=== PATIENT | male | born 1965 | race Caucasian/White ===

== ENCOUNTER 2018-04-06 11:27 | Observation (INO) ==
[2018-04-06] MEDS ORDERED: Ipratropium/Albuterol Neb 3 ML IH ONE (12:12)
[2018-04-06] MEDS ORDERED: methylPREDNISolone 125 MG/2 ML VIAL IVP ONE (12:12)
[2018-04-06 12:51] LABS: Basophils % 0.4 %; Eosinophils # 0.1 K/mcL (0.0-0.6); Eosinophils % 2.5 %; Hematocrit 44.1 % (37.5-50.1); Immature Granulocytes % 0.4 % (0-4); Lymphocytes # 1.5 K/mcL (0.6-4.6); Lymphocytes % 26.2 %; Mean Corpuscular Hemoglobin 28.2 pg (28.0-33.3); Mean Corpuscular Volume 83.1 fL (83.0-100.0); Monocytes # 0.3 K/mcL (0.0-1.3); Monocytes % 5.5 %; Neutrophils # 3.7 K/mcL (1.6-8.9); Platelet Count 160 K/mcL (140-400); Red Blood Count 5.31 M/mcL (4.19-5.50); Red Cell Distribution Width 12.1 % (11.5-14.5)
--- NOTE | 2018-04-06 13:11 | Emergency Department Note ---
Disposition Clinical Impression: Hyperglycemia, Lactic acidosis Disposition: Admitted As Inpatient SOB HPI - General Chief Complaint: ED Shortness of Breath/Dyspnea Stated Complaint: Left AMA Yesterday,needs test admit Time Seen by Provider: 04/06/18 11:42 Source: patient Limitations: no limitations Nursing Notes Reviewed: Yes Vital Signs Reviewed: Yes - History of Present Illness 53 year old male praneeth ot the ED with complaints of shortness of breath and was evlauted here yesterday and offered admission for CP r/o ACS and he left AMA. PAtient states that he has not experinced chest pain but is expereincing exertional dyspnea and productive cough and denies smoking or history of blood clots in his lung. Patient states that he has a family history of ACS and has l ost his father to an [place]. Patint denies taking any medicatiosnand states that his exertional dspnea is getting worse. Patient denies fever and is wanted to be checked out again and re-evlauted for admission - Related Data Home Medications Medication Instructions Recorded Confirmed Insulin Glargine,Hum.rec.anlog 20 unit SQ QPM 04/06/18 04/06/18 [Lantus Solostar] RX: Lisinopril [Zestril] 10 mg PO DAILY 04/06/18 04/06/18 Allergies Allergy/AdvReac Type Severity Reaction Status Date / Time prednisone AdvReac See Verified 04/05/17 14:45 Comments Constitutional: Denies: fever, chills, weakness, weight change Eyes: Denies: eye pain, eye discharge, vision change ENT ED: Denies: ear pain, throat pain, dental pain, hearing loss, epistaxis, c ongestion, dysphagia Cardiovascular: Reports: dyspnea on exertion. Denies: chest pain, palpitations, edema, syncope Respiratory: Reports: cough, wheezes. Denies: dyspnea, hemoptysis, stridor Gastrointestinal: Denies: abdominal pain, nausea, vomiting, diarrhea, constipation, hematemesis, melena, hematochezia Genitourinary: Denies: urgency, dysuria, frequency, hematuria Musculoskeletal: Denies: back pain, neck pain, arthralgia, myalgia Integumentary: Denies: rash, abrasion, lesions Neurological: Denies: headache, weakness, numbness, paresthesias, confusion, abnormal gait, vertigo Psychiatric: Denies: anxiety, depression, suicidal thoughts, homicidal thoughts, auditory hallucinations, visual hallucinations Endocrine: Denies: fatigue Hematological/Lymphatic: Denies: easy bleeding, easy bruising Allergic/Immunologic: Denies: facial swelling, urticaria Past Medical History - Past Medical History Medical history: Reports: asthma, diabetes, hyperlipidemia, hypertension Surgical history: Reports: non-contributory Psychiatric history: Reports: anxiety, depression - Social History Smoking Status: Never smoker Smokeless Tobacco Status: No Alcohol use: Reports: none Drug use: Reports: none Physical Exam - General Limitations: no limitations General appearance: alert - Head Head exam: atraumatic, normocephalic, normal inspection - Eye Eye exam: Present: normal appearance, PERRL, EOMI - Expanded Eye Exam Pupils: Bilateral: reactive - ENT ENT exam: normal exam, normal oropharynx, mucous membranes moist - Expanded ENT Exam External ear exam: Present: normal external inspection Mouth exam: Present: normal external inspection Teeth exam: Present: normal inspection Throat exam: Present: normal inspection - Neck Neck exam: Present: normal inspection, full ROM, trachea midline - Chest Chest inspection: Present: normal inspection, symmetric chest wall rise - Respiratory Respiratory exam: Present: wheezes - Cardiovascular Cardiovascular exam: Present: regular rate, normal rhythm, normal heart sounds - Abdominal Exam Abdominal exam: Present: soft, Non-Tender. Absent: tenderness, distention, guarding, rebound, rigidity - Extremities Exam Extremities exam: Present: normal inspection, full ROM. Absent: tenderness, pedal edema - Expanded Upper Extremity Exam Shoulder exam: Present: normal inspection, full ROM Arm exam: Present: normal inspection, full ROM Elbow exam: Present: normal inspection, full ROM Forearm/Wrist exam: Present: normal inspection, full ROM Hand exam: Present: normal inspection, full ROM Vascular exam: Normal: capillary refill, radial pulse - Expanded Lower Extremity Exam Hip/Pelvis exam: Present: normal inspection, full ROM Upper leg exam: Present: normal inspection, full ROM Knee exam: Present: normal inspection, full ROM Lower leg exam: Present: normal inspection, full ROM Ankle exam: Present: normal inspection, full ROM Foot/toe exam: Present: normal inspection, full ROM Neurovascular/Tendon exam: Absent: motor deficit, sensory deficit, tendon deficit - Back Exam Back exam: Present: normal inspection, full ROM. Absent: tenderness - Neurological Exam Neurological exam: Present: alert, oriented X3 - Expanded Neurological Exam Patient oriented to: Present: person, place, time Coma Scale Eye Opening: Spontaneous Coma Scale Motor Response: Obeys Commands Coma Scale Verbal Response: Oriented Coma Scale Total: 15 - Psychiatric Psychiatric exam: Present: normal affect, normal mood - Skin Skin exam: Present: warm, dry, intact, normal color Course Course Narrative: I will do a cardiopulmonary workup and then reassess for admission. ASA therapy given and breathign treatments/steroids for his wheezes - Consultations Consultation #1: discussed case with Dr. Reynaga and he has been accepted to the medicine service Time: 18:27 Vital Signs Temperature 98.2 F 04/06/18 11:38 Pulse Rate 89 04/06/18 11:38 Respiratory Rate 18 04/06/18 11:38 Blood Pressure 158/94 04/06/18 11:38 O2 Sat by Pulse Oximetry 97 04/06/18 11:38 Temperature 97.4 F L 04/06/18 15:44 Pulse Rate 92 04/06/18 15:44 Respiratory Rate 16 04/06/18 16:42 Blood Pressure 148/94 04/06/18 16:42 O2 Sat by Pulse Oximetry 96 04/06/18 15:44 Oxygen Delivery Oxygen Delivery Room Air Shortness of Breath/Dyspnea - Medical Records Medical records reviewed: Yes I reviewed the patient's medical records. - Lab Data Lab results reviewed: Yes I reviewed the patient's lab results. Result diagrams: 04/06/18 12:32 04/06/18 17:47 Lab Results 04/06/18 04/06/18 04/06/18 Range/Units 12:32 12:32 12:32 WBC 5.7 (4.3-11.1) K/mcL RBC 5.31 (4.19-5.50) M/mcL Hgb 15.0 (12.9-16.9) g/dL Hct 44.1 (37.5-50.1) % MCV 83.1 (83.0-100.0) fL MCH 28.2 (28.0-33.3) pg MCHC 34.0 (31.6-35.5) g/dL RDW 12.1 (11.5-14.5) % Plt Count 160 (140-400) K/mcL MPV 10.0 (9.4-12.4) fL Immature Gran % 0.4 (0-4) % Seg Neutrophils % 65.0 % Lymphocytes % 26.2 % Monocytes % 5.5 % Eosinophils % 2.5 % Basophils % 0.4 % Neutrophils # 3.7 (1.6-8.9) K/mcL Lymphocytes # 1.5 (0.6-4.6) K/mcL Monocytes # 0.3 (0.0-1.3) K/mcL Eosinophils # 0.1 (0.0-0.6) K/mcL Basophils # 0.0 (0.0-0.2) K/mcL VBG pH (7.32-7.42) pH Units VBG pCO2 (41-51) mmHg VBG pO2 (25-50) mmHg VBG HCO3 (21-27) mEq/L Sodium 128 L (136-145) mEq/L Potassium 4.8 (3.5-5.1) mEq/L Chloride 98 (98-107) mEq/L Carbon Dioxide 20 L (23-29) mEq/L BUN 19 (6-20) mg/dL Creatinine 1.05 (0.70-1.30) mg/dL Est GFR ( Amer) > 60 (> 60) Est GFR (Non-Af Amer) > 60 (> 60) BUN/Creatinine Ratio 18 (6-26) Glucose 664 H* (70-105) mg/dL Calculated Osmolality 300 (280-300) Lactic Acid 3.3 H (0.5-2.2) mmol/L Calcium 9.4 (8.6-10.3) mg/dL Troponin I < 0.03 (< 0.04) ng/mL B-Natriuretic Peptide (Less than 100) pg/mL Beta-Hydroxybutyric Acd (0.02-0.27) mmol/L 04/06/18 04/06/18 04/06/18 Range/Units 12:32 14:14 14:14 WBC (4.3-11.1) K/mcL RBC (4.19-5.50) M/mcL Hgb (12.9-16.9) g/dL Hct (37.5-50.1) % MCV (83.0-100.0) fL MCH (28.0-33.3) pg MCHC (31.6-35.5) g/dL RDW (11.5-14.5) % Plt Count (140-400) K/mcL MPV (9.4-12.4) fL Immature Gran % (0-4) % Seg Neutrophils % % Lymphocytes % % Monocytes % % Eosinophils % % Basophils % % Neutrophils # (1.6-8.9) K/mcL Lymphocytes # (0.6-4.6) K/mcL Monocytes # (0.0-1.3) K/mcL Eosinophils # (0.0-0.6) K/mcL Basophils # (0.0-0.2) K/mcL VBG pH (7.32-7.42) pH Units VBG pCO2 (41-51) mmHg VBG pO2 (25-50) mmHg VBG HCO3 (21-27) mEq/L Sodium (136-145) mEq/L Potassium (3.5-5.1) mEq/L Chloride (98-107) mEq/L Carbon Dioxide (23-29) mEq/L BUN (6-20) mg/dL Creatinine (0.70-1.30) mg/dL Est GFR ( Amer) (> 60) Est GFR (Non-Af Amer) (> 60) BUN/Creatinine Ratio (6-26) Glucose (70-105) mg/dL Calculated Osmolality (280-300) Lactic Acid 2.2 (0.5-2.2) mmol/L Calcium (8.6-10.3) mg/dL Troponin I (< 0.04) ng/mL B-Natriuretic Peptide 8 (Less than 100) pg/mL Beta-Hydroxybutyric Acd 0.15 (0.02-0.27) mmol/L 04/06/18 Range/Units 14:32 WBC (4.3-11.1) K/mcL RBC (4.19-5.50) M/mcL Hgb (12.9-16.9) g/dL Hct (37.5-50.1) % MCV (83.0-100.0) fL MCH (28.0-33.3) pg MCHC (31.6-35.5) g/dL RDW (11.5-14.5) % Plt Count (140-400) K/mcL MPV (9.4-12.4) fL Immature Gran % (0-4) % Seg Neutrophils % % Lymphocytes % % Monocytes % % Eosinophils % % Basophils % % Neutrophils # (1.6-8.9) K/mcL Lymphocytes # (0.6-4.6) K/mcL Monocytes # (0.0-1.3) K/mcL Eosinophils # (0.0-0.6) K/mcL Basophils # (0.0-0.2) K/mcL VBG pH 7.37 (7.32-7.42) pH Units VBG pCO2 40 L (41-51) mmHg VBG pO2 94 H (25-50) mmHg VBG HCO3 23 (21-27) mEq/L Sodium (136-145) mEq/L Potassium (3.5-5.1) mEq/L Chloride (98-107) mEq/L Carbon Dioxide (23-29) mEq/L BUN (6-20) mg/dL Creatinine (0.70-1.30) mg/dL Est GFR ( Amer) (> 60) Est GFR (Non-Af Amer) (> 60) BUN/Creatinine Ratio (6-26) Glucose (70-105) mg/dL Calculated Osmolality (280-300) Lactic Acid (0.5-2.2) mmol/L Calcium (8.6-10.3) mg/dL Troponin I (< 0.04) ng/mL B-Natriuretic Peptide (Less than 100) pg/mL Beta-Hydroxybutyric Acd (0.02-0.27) mmol/L - Radiology Data Radiology results reviewed: Yes I reviewed the patient's radiology results. - EKG Data EKG attestation: Yes I reviewed and interpreted this EKG. EKG results narrative: NSR with rate of 89. NO STEMI. normal intervals. no change from yesterday.
[2018-04-06 13:15] LABS: Troponin I < 0.03 ng/mL (< 0.04)
[2018-04-06] MEDS ORDERED: Isovue-370 500 ML INFUS..BTL IV ONE (13:15)
[2018-04-06 13:29] LABS: BUN/Creatinine Ratio 18 (6-26); Blood Urea Nitrogen 19 mg/dL (6-20); Calcium 9.4 mg/dL (8.6-10.3); Carbon Dioxide 20 mEq/L (23-29); Chloride 98 mEq/L (98-107); Glucose 664 mg/dL (70-105); Osmolality,Calculated 300 (280-300); Potassium 4.8 mEq/L (3.5-5.1); Sodium 128 mEq/L (136-145); eGFR For Non-African Americans > 60 (> 60)
[2018-04-06 14:34] LABS: VBG HCO3 23 mEq/L (21-27); VBG PCO2 40 mmHg (41-51); VBG PH 7.37 pH Units (7.32-7.42); VBG PO2 94 mmHg (25-50)
[2018-04-06] MEDS ORDERED: 0.9 % Sodium Chloride 1,000 ML IVC ONE (14:40)
[2018-04-06] MEDS ORDERED: Insulin Human Regular 10 UNIT in 0.9 % Sodium Chloride 10 ML IV ONE (14:41)
[2018-04-06] MEDS ORDERED: Naloxone 0.4 MG/ML INJ IVP PRN (15:44)
[2018-04-06] MEDS ORDERED: Insulin Regular, Human 100 UNIT/ML IV ONE (15:47)
[2018-04-06] MEDS ORDERED: D5% in 0.45% NACL 1,000 ML IVC PRN (15:47)
[2018-04-06] MEDS ORDERED: Insulin Regular, Human 100 UNIT/ML IV PRN (15:47)
[2018-04-06] MEDS ORDERED: *HR* Dextrose 50 % in Water (Syg) 50 ML SYRINGE IVP PRN ×2 (15:47→18:33)
[2018-04-06] MEDS ORDERED: Insulin Human Regular 100 UNIT in 0.9 % Sodium Chloride 100 ML IVC SCH (16:00)
[2018-04-06] MEDS ORDERED: 0.9 % Sodium Chloride 1,000 ML IVC SCH (16:00)
[2018-04-06 18:16] LABS: BUN/Creatinine Ratio 21 (6-26); Blood Urea Nitrogen 20 mg/dL (6-20); Calcium 9.4 mg/dL (8.6-10.3); Carbon Dioxide 20 mEq/L (23-29); Chloride 104 mEq/L (98-107); Glucose 363 mg/dL (70-105); Osmolality,Calculated 295 (280-300); Potassium 4.1 mEq/L (3.5-5.1); Sodium 134 mEq/L (136-145); eGFR For Non-African Americans > 60 (> 60)
--- NOTE | 2018-04-06 18:19 | Internal Med History&Physical ---
Date of Encounter: 04/06/18 Time of Encounter: 18:15 Internal Medicine - H&P: HPI Chief complaint: Shortness of breath, fatigue, thirst History of present illness: Mr. Trent is a 53 year old male with pmh of asthma, diabetes, hypertension, dyslipidemia with non compliance with his home insulin regimen due to loss of insurance presenting with complaints of shortness of breath and fatigue for a while. Patient says he recently lost his unsurance and hasn't been able to afford his meds. He came to the ER yesterday and was short of breath and he was advised to be admitted to r/o ACS, and was found to be hyperglycemic but left AMA. He came back with worsening shortness of breath today and sugars were elevated in the 600s. In the ER, a CT chest was done showing no evidence of PE but sugars were elevated and he got IV insulin. He is being admitted for further management Past Med Surg Social Fam HX - Past Medical History Medical history: asthma, diabetes, hyperlipidemia, kidney stones Psychiatric history: anxiety, depression - Past Surgical History Surgical History: non-contributory Additional surgical history: dental surgery, heart cath no stents - Social History Smoking Status: Never smoker Smokeless Tobacco Status: No Alcohol use: none Drug use: none - Family History Mother Living Status: Age at : 70 Cause of : Dementia Father Living Status: Age at : 67 Cause of : Lung [place] Internal Medicine - H&P: Meds Insulin Glargine,Hum.rec.anlog [Lantus Solostar] 20 unit SQ QPM 04/06/18 [History] Lisinopril [Zestril] 10 mg PO DAILY 04/06/18 [History] Allergy/AdvReac Type Severity Reaction Status Date / Time prednisone AdvReac See Verified 04/05/17 14:45 Comments All Systems PM: A 10-system review of systems was performed and is negative for pertinent f indings except as documented above in the HPI. - Constitutional Constitutional: fatigue, no chills, no fever(s), no night sweats - EENT Eyes: no change in vision, no discharge, no pain, no photophobia Ears: no ear discharge, no ear pain, no tinnitus Nose, mouth and throat: no dysphagia, no nasal discharge, no neck pain, no sore throat - Cardiovascular Cardiovascular ROS IM: no chest pain, no diaphoresis, no dyspnea, no lighthead edness, no palpitations, no syncope - Respiratory Respiratory: dyspnea, no cough, no wheezing, no excessive phlegm production - Gastrointestinal Gastrointestinal: no abdominal pain, no diarrhea, no hematemesis, no hematoch ezia, no melena, no nausea, no vomiting - Musculoskeletal Musculoskeletal ROS IM: no numbness, no tingling - Integumentary Integumentary IM: no rash, no unusual bruising - Neurological Neurological ROS: no confusion, no convulsions, no focal weakness, no numbness, no tingling, no tremor(s) - Hematologic/Lymphatic Hematologic/Lymphatic: no easy bruising - Constitutional Vitals: Temp Pulse Resp BP Pulse Ox 97.4 F L 92 16 148/94 96 04/06/18 15:44 04/06/18 15:44 04/06/18 16:42 04/06/18 16:42 04/06/18 15:44 Exam: NAD - Head Head exam: Present: atraumatic, normocephalic - Eye Eye exam: Present: PERRL, conjuntiva pink, sclera anicteric Pupils: Present: PERRL - Neck Neck exam general surgery: Present: supple, trachea midline. Absent: lymphadenopathy - Respiratory Respiratory exam: Present: CTAB. Absent: accessory muscle use, rales, rhonchi, wheezes - Cardiovascular Cardiovascular exam: Present: RRR, +S1, +S2. Absent: diastolic murmur, gallop, rubs, systolic murmur - GI/Abdominal GI/Abdominal exam: Present: normal bowel sounds, soft, no peritoneal signs. Absent: distended, tenderness - Extremities Exam Extremities exam: Present: warm, radial pulses palpable and symmetrical. Absent: calf tenderness, cyanotic, pedal edema - Neurological Exam Neurological exam: Present: CN II-XII intact, oriented X3, no focal deficits. Absent: pronater drift, facial droop, speech deficit - Skin Skin exam: Present: dry, intact Internal Med - H&P Results - Labs CBC & Chem 7: 04/06/18 12:32 18 17:47 Labs: Short CBC 04/06/18 Range/Units 12:32 WBC 5.7 (4.3-11.1) K/mcL Hgb 15.0 (12.9-16.9) g/dL Hct 44.1 (37.5-50.1) % Plt Count 160 (140-400) K/mcL Neutrophils # 3.7 (1.6-8.9) K/mcL BMP 04/06/18 04/06/18 12:32 17:47 Sodium 128 L 134 L Potassium 4.8 4.1 Chloride 98 104 Carbon Dioxide 20 L 20 L BUN 19 20 Creatinine 1.05 0.95 Glucose 664 H* 363 H Calcium 9.4 9.4 Cardiac Enzymes 04/06/18 Range/Units 12:32 Troponin I < 0.03 (< 0.04) ng/mL - ABG Interpretation ABG results: 04/06/18 14:32 VBG pH 7.37 VBG pCO2 40 L VBG pO2 94 H VBG HCO3 23 - Impressions ITS Impressions Chest X-Ray 04/06/18 12:12 IMPRESSION: No acute process. D/ / Anna Morris MD / Anna Morris MD Interpreting Provider: Anna Morris MD Chest CTA 04/06/18 13:15 IMPRESSION: No evidence of pulmonary embolism or acute pulmonary abnormality. D/ / King Ray MD / King Ray MD Interpreting Provider: King Ray MD - Assessment and plan (1) Uncontrolled diabetes mellitus Current Visit: Yes Status: Acute Assessment and plan: Pt comes in with elevated blood sugars in the 600s and non compliance with insulin Repeat BMP showed sugars in the 300s. Had no anion gap elevation Will place on basal and short acting insulin Qualifiers: Diabetes mellitus type: type 2 Qualified Code(s): E11.65 - Type 2 diabetes mellitus with hyperglycemia (2) Shortness of breath Current Visit: Yes Status: Acute Assessment and plan: Has shortness of breath of 3 weeks duration which is unusual. Has risk factors for CAD Will keep NPO from midnight and obtain stress test and 2D echo (3) Asthma Current Visit: Yes Status: Acute Assessment and plan: Nebs as needed. no acute exacerbation Qualifiers: Qualified Code(s): J45.909 - Unspecified asthma, uncomplicated (4) Hypertension Current Visit: Yes Status: Acute Assessment and plan: Continue lisinopril Qualifiers: Hypertension type: essential hypertension Qualified Code(s): I10 - Essential (primary) hypertension (5) DVT prophylaxis Current Visit: Yes Status: Acute Assessment and plan: Heparin sc - Time Spent With Patient Total time spent is greater than 50% in coordination of care (as documented) at patient's floor/unit and/or counseling patient:
[2018-04-06] MEDS ORDERED: Ipratropium/Albuterol Neb 3 ML IH PRN (18:20)
[2018-04-06] MEDS ORDERED: D5% in Water 1,000 ML IVC PRN (18:33)
[2018-04-06] MEDS ORDERED: Dextrose Gel 15 GM/37.5 ML TUBE PO PRN ×2 (18:33)
[2018-04-06] MEDS: Insulin LISPRO 300 UNITS/3 ML VIAL SQ SCH (18:50)
[2018-04-06] MEDS ORDERED: Insulin DETEMIR 100 UNIT/ML X5UNITS SQ SCH (21:00)
[2018-04-06] MEDS ORDERED: Insulin LISPRO 300 UNITS/3 ML VIAL SQ SCH (21:45)
[2018-04-07 04:52] LABS: Basophils % 0.1 %; Eosinophils % 0.1 %; Hematocrit 44.6 % (37.5-50.1); Hemoglobin 15.4 g/dL (12.9-16.9); Immature Granulocytes % 0.2 % (0-4); Lymphocytes # 1.6 K/mcL (0.6-4.6); Lymphocytes % 10.4 %; Mean Corpuscular HGB Conc 34.5 g/dL (31.6-35.5); Mean Corpuscular Hemoglobin 28.6 pg (28.0-33.3); Mean Corpuscular Volume 82.7 fL (83.0-100.0); Mean Platelet Volume 10.1 fL (9.4-12.4); Monocytes # 0.6 K/mcL (0.0-1.3); Monocytes % 3.6 %; Platelet Count 203 K/mcL (140-400); Red Blood Count 5.39 M/mcL (4.19-5.50); Red Cell Distribution Width 12.3 % (11.5-14.5); Segmented Neutrophils % 85.6 %
[2018-04-07 05:03] LABS: Neutrophils # 13.4 K/mcL (1.6-8.9)
[2018-04-07 05:12] LABS: BUN/Creatinine Ratio 22 (6-26); Blood Urea Nitrogen 21 mg/dL (6-20); Calcium 9.6 mg/dL (8.6-10.3); Carbon Dioxide 21 mEq/L (23-29); Chloride 106 mEq/L (98-107); Glucose 215 mg/dL (70-105); Magnesium 2.2 mg/dL (1.6-2.6); Osmolality,Calculated 291 (280-300); Phosphorous 3.6 mg/dL (2.7-4.5); Potassium 4.2 mEq/L (3.5-5.1); Sodium 136 mEq/L (136-145); eGFR For Non-African Americans > 60 (> 60)
[2018-04-07] MEDS ORDERED: *HR* Heparin 5,000 UNIT/ML VIAL SQ SCH (06:00)
[2018-04-07] MEDS ORDERED: Regadenoson 0.4 MG/5 ML SYRINGE IVP ONE (06:15)
--- NOTE | 2018-04-07 09:48 | Discharge Summary ---
Orders not resulted at time of discharge: Pending orders 04/06/18 17:51 NM valerie perf SPECT multi [NM] Routine Date of Encounter: 04/07/18 Time of Encounter: 09:45 - Discharge Diagnosis (1) Uncontrolled diabetes mellitus Priority: Primary Status: Acute Assessment and Plan: 53 year old male with pmh of asthma, diabetes, hypertension, dyslipidemia with non compliance with his home insulin regimen due to loss of insurance presenting with complaints of shortness of breath and fatigue for a while. Patient says he recently lost his unsurance and hasn't been able to afford his meds. He came to the ER yesterday and was short of breath and he was advised to be admitted to r/o ACS, and was found to be hyperglycemic but left AMA. He came back with worsening shortness of breath today and sugars were elevated in the 600s. He was admitted wih uncontrolled hyperglycemia/ DM 2 due to non compliance. Hi sugars were elevated in the 600s with an osmolality of 300. He was given IV insulin and Iv fluids. Repeat BMP showed sugars in the 300s. Had no anion gap elevation His hyperglycemia was controlled on basal and short acting insulin. For his 3 week history of shortness of breath, he had an echo and a stress test done that came back negative. He was discharged in a stable condition Qualifiers: Diabetes mellitus type: type 2 Qualified Code(s): E11.65 - Type 2 diabetes mellitus with hyperglycemia (2) Shortness of breath Priority: Primary Status: Acute (3) Asthma Priority: Primary Status: Acute Qualifiers: Qualified Code(s): J45.909 - Unspecified asthma, uncomplicated (4) Hypertension Priority: Primary Status: Acute Qualifiers: Hypertension type: essential hypertension Qualified Code(s): I10 - Essential (primary) hypertension (5) DVT prophylaxis Priority: Primary Status: Acute Hospital course: Mr. Trent is a 53 year old male - Time Spent with Patient Total time spent providing and/or coordinating discharge services: - Discharge Medications Prescriptions: Alcohol Antiseptic Pads [Alcohol Pads] 1 each TP 2-4XD PRN 30 Days #100 med..pad PRN Reason: Blood Sugar - High Blood Sugar Diagnostic [Blood Glucose Test Strip] 1 each MC 2-4XD PRN 30 Days #120 strip PRN Reason: Blood Sugar - High Blood-Glucose Meter [Accu-Chek Guide Monitor System] 1 each MC 2-4XD PRN 30 Days #1 each PRN Reason: Blood Sugar - High Insulin DETEMIR [Levemir] 20 unit SQ HS 30 Days #10 [id number] Insulin LISPRO [HumaLOG] 7 units SQ TIDAC 30 Days #10 vial Lancets [Blood Lancets] 1 each MC QID #100 each Sitagliptin Phos/Metformin HCl [Janumet 50-500 mg Tablet] 1 each PO BIDWM #60 tablet Syringe with Needle, 0.5 ml [Tuberculin Syringe] 1 each MC 1-2XD PRN 30 Days #100 disp.syrin PRN Reason: Blood Sugar - High Home Medications: Lisinopril [Zestril] 10 mg PO DAILY 04/06/18 [History] Alcohol Antiseptic Pads [Alcohol Pads] 1 each 2-4XD PRN 30 Days #100 med..pad 04/07/18 [Rx] Blood Sugar Diagnostic [Blood Glucose Test Strip] 1 each MC 2-4XD PRN 30 Days #120 strip 04/07/18 [Rx] Blood-Glucose Meter [Accu-Chek Guide Monitor System] 1 each MC 2-4XD PRN 30 Days #1 each 04/07/18 [Rx] Insulin DETEMIR [Levemir] 20 unit SQ HS 30 Days #10 [id number] 04/07/18 [Rx] Insulin LISPRO [HumaLOG] 7 units SQ TIDAC 30 Days #10 vial 04/07/18 [Rx] Lancets [Blood Lancets] 1 each MC QID #100 each 04/07/18 [Rx] Sitagliptin Phos/Metformin HCl [Janumet 50-500 mg Tablet] 1 each PO BIDWM #60 tablet 04/07/18 [Rx] Sitagliptin Phos/Metformin HCl [Janumet Xr 50-500 mg Tablet] 1 tab PO BID 04/07/18 [History] Syringe with Needle, 0.5 ml [Tuberculin Syringe] 1 each MC 1-2XD PRN 30 Days #100 disp.syrin 04/07/18 [Rx] Allergies/Adverse Reactions: Allergy/AdvReac Type Severity Reaction Status Date / Time prednisone AdvReac See Verified 04/05/17 14:45 Comments Date of admission: 04/06/18 15:26 Primary care physician: Jacob Serafin, DO - Constitutional Vitals: Temp Pulse Resp BP Pulse Ox 97.7 F 76 16 129/84 96 04/07/18 04:00 04/07/18 04:00 04/07/18 04:00 04/07/18 04:00 04/07/18 04:00 Exam: Gen - Awake, alert, oriented x 3, no acute distress HEENT - NCAT, PERRLA, EOMI, hearing grossly intact, oropharynx benign CV - RRR, normal S1 and S2, no M/R/G, no BLE edema Resp - Normal WOB, CTAB, no W/R/R GI - Soft, NT/ND, no masses, normal bowel sounds, Skin - Warm, dry, no rashes/lesions/ulcers Psych - Normal mood and affect, no depression or anxiety - Patient Status Disposition: Home, Self-Care Condition: Good - Discharge Instructions Instructions: Insulin Detemir (Injection), Sitagliptin/Metformin (By mouth), Insulin Lispro (Injection), Diabetes Mellitus Type 2 in Adults (DC) Follow Up With: Jacob Betancourt DO [Primary Care Provider] - 04/14/18 2:00 pm
[2018-04-07 09:50] VITALS: BP 147/91
[2018-04-07] MEDS: Insulin LISPRO 300 UNITS/3 ML VIAL SQ SCH (10:02)
[2018-04-07 10:39] LABS: Estimated Average Glucose 352 mg/dl; Hemoglobin A1C 13.9 %
--- NOTE | 2018-04-08 18:37 | Electrocardiograph Report ---
[place] [facility] Test Date: 2018-04-06 Pat Name: Srinivasa Trent Department: EXAM9 Room: [id number] Gender: M Risk Lead: : 1965 Requested By: Blanka Lee Order Number: [id number] Reading MD: Siva Padilla Measurements Intervals [place] Rate: 79 P: 59 PA: 139 QRS: 59 QRSD: 96 T: 31 QT: 373 QTc: 428 Interpretive Statements Sinus rhythm ST elev, probable normal early repol pattern Baseline wander in lead(s) II aVF V2 V5 V6 Electronically Signed On 04-08-2018 18:35:59 EST by Siva Padilla
== END 2018-04-07 12:47 | disposition home or self-care (01) ==
LOC: 2NENU 11:27 → EMEROOARM 11:27 → 2NENU 17:26
PROVIDERS: ADMIT Student in an Organized Health Care Education/Training Program; ATTEND Student in an Organized Health Care Education/Training Program